=== PATIENT | female | born 1960 | race Caucasian/White ===

== ENCOUNTER 2017-10-24 09:25 | Emergency (ER) | payer OTHER ==
[2017-10-24 10:32] VITALS: BP 123/88
--- NOTE | 2017-10-24 11:16 | UC ---
Respiratory Complaint HPI - HPI Summary HPI Summary: 5 DAYS OF SINUS CONGESTION/PRESSURE, RHINITIS, AUGUST, FATIGUE, ST. DEVELOP COUGH 3 DAYS AGO AND LAST NIGHT TEMP WAS 101. VOMITED X 1 LAST NIGHT 1AM. TX FOR SINUSITIS 2 WEEKS AGO WITH BACTRIM. - History of Current Complaint Chief Complaint: UCRespiratory Stated Complaint: FLU SYMPTOMS Time Seen by Provider: 10/24/17 10:30 Hx Obtained From: Patient Hx Last Menstrual Period: 2006 Onset/Duration: Gradual Onset, Lasting Days, Still Present Timing: Constant Severity Initially: Moderate Severity Currently: Moderate Pain Intensity: 3 Pain Scale Used: 0-10 Numeric Character: Cough: Nonproductive Aggravating Factors: Nothing Alleviating Factors: Nothing Associated Signs And Symptoms: Positive: Fever, Chills, URI, Nasal Congestion, Sinus Discomfort. Negative: Dyspnea, Wheezing - Allergies/Home Medications Allergies/Adverse Reactions: Allergies Allergy/AdvReac Type Severity Reaction Status Date / Time Ibuprofen Allergy Severe Anaphylatic Verified 07/18/16 09:44 Shock RENEE Inhibitors Allergy Coughing Verified 10/24/17 10:32 Cefprozil Allergy Vomiting Verified 10/24/17 10:32 Home Medications: Home Medications Amlodipine Besylate [Norvasc 10 mg tab] 10 mg PO DAILY 10/24/17 [History Confirmed 10/24/17] Cetirizine* [ZyrTEC 10 MG TAB*] 10 mg PO DAILY PRN 10/24/17 [History Confirmed 10/24/17] Fluticasone NASAL SPRAY 50MCG* [Flonase NASAL SPRAY 50MCG*] 2 spray BOTH NARES DAILY 10/24/17 [History Confirmed 10/24/17] Ipratropium Assonet (Nasal) [Ipratropium Assonet] 0.06 % NA BID 10/24/17 [ History Confirmed 10/24/17] Irbesartan 300 mg PO DAILY 10/24/17 [History Confirmed 10/24/17] Ketotifen Fumarate (Ophth) [Zaditor] 0.025 % OP Q12H PRN 10/24/17 [History Confirmed 10/24/17] PMH/Surg Hx/FS Hx/Imm Hx Cardiovascular History: Hypertension - Surgical History Surgical History: Yes Surgery Procedure, Year, and Place: RIGHT KNEE LAPROSCOPIC. LEFT ULNER SX. TUBAL ligation - Family History Known Family History: Positive: Hypertension - Social History Alcohol Use: Occasionally Substance Use Type: None Smoking Status (MU): Heavy Every Day Tobacco Smoker Type: Cigarettes Amount Used/How Often: 1 PPD Length of Time of Smoking/Using Tobacco: 30 YRS Have You Smoked in the Last Year: Yes Review of Systems Constitutional: Fever, Fatigue ENT: Sore Throat, Nasal Discharge, Sinus Congestion Respiratory: Cough Cardiovascular: Negative Gastrointestinal: Vomiting, Nausea Neurological: Headache All Other Systems Reviewed And Are Negative: Yes Physical Exam Triage Information Reviewed: Yes Appearance: Well-Appearing, No Pain Distress, Well-Nourished Vital Signs: Initial Vital Signs Temp 98.9 F 10/24/17 10:22 Pulse 98 10/24/17 10:22 Resp 22 10/24/17 10:22 BP 123/88 10/24/17 10:22 Pulse Ox 96 10/24/17 10:22 Vital Signs Reviewed: Yes Eyes: Positive: Conjunctiva Clear ENT: Positive: Hearing grossly normal, Pharynx normal, Nasal congestion, TMs normal Neck: Positive: Supple, Nontender, No Lymphadenopathy Respiratory Exam: Normal Cardiovascular Exam: Normal Abdomen Description: Positive: Soft Musculoskeletal: Positive: No Edema Neurological: Positive: Alert Psychological: Positive: Age Appropriate Behavior Skin: Negative: rashes UC Diagnostic Evaluation - Laboratory O2 Sat by Pulse Oximetry: 96 Respiratory Course/Dx - Differential Dx/Diagnosis Provider Diagnoses: ACUTE RHINOSINUSITIS Discharge - Discharge Plan Condition: Stable Disposition: HOME Prescriptions: Amoxicillin/Clavulanate TAB* [Augmentin TAB 875*] 875 mg PO BID #20 tab Patient Education Materials: Rhinosinusitis (ED) Referrals: Twila Knight PA [Primary Care Provider] - If Needed Additional Instructions: ACUTE RHINOSINUSITIS It is generally not possible to distinguish viral from bacterial acute rhinosinusitis (ARS) in the first 10 days of illness. Acute bacterial rhinosinusitis (ABRS) should be suspected in patients presenting with any of the following three features: 1) persistent symptoms or signs of ARS lasting 10 or more days with no clinical improvement; 2) onset with severe symptoms (fever >39C or 102F and purulent nasal discharge or facial pain) lasting at least three consecutive days at the beginning of illness; 3) onset with worsening symptoms following a viral upper respiratory infection that lasted five to six days and was initially improving. Management of acute viral rhinosinusitis (AVRS) aims to relieve symptoms of nasal obstruction and rhinorrhea; treatment for ABRS includes antibiotics to eliminate the infection and prevent complications. AVRS is expected to resolve within 10 days; ABRS may also resolve spontaneously within the first 10 days. Patients who present with fewer than 10 days of symptoms, in the absence of high fever or symptoms suggesting complicated illness, should be managed with supportive care - mild analgesics, saline nasal irrigation, and fluid. Consider treatment with intranasal glucocorticoids. Decongestants may be useful when eustachian tube dysfunction is a factor for patients with AVRS, but are not likely to be helpful for patients with ABRS. CONSIDER ENT EVALUATION TO DETERMINE THE EXTENT OF ANY UNDERLYING SINUS DISEASE AND TO DISCUSS TREATMENT OPTIONS FOR RECURRENT SINUSITIS. [facility] [place] [facility] [phone] [facility] [place] ([facility] OFFICE HOURS ON TUESDAYS) DR. IRLANDA LEONARDO Address: [address] [place] [address] (Tuesdays) Phone [place]: Phone [place]: TRY OTC AFRIN FOR NASAL CONGESTION. OKAY TO USE 2-3 SPRAYS IN EACH NOSTRIL UP TO 2 TIMES DAILY. DO NOT USE FOR MORE THAN 3-4 CONSECUTIVE DAYS TO PREVENT DEVELOPING REBOUND CONGESTION.
== END 2017-10-24 11:16 | disposition home or self-care (01) ==
LOC: UCCORT 09:25
DX: J01.90 Acute sinusitis, unspecified (principal); R11.2 Nausea with vomiting, unspecified; R53.83 Other fatigue; I10 Essential (primary) hypertension; Z88.6 Allergy status to analgesic agent; Z88.1 Allergy status to other antibiotic agents; F17.210 Nicotine dependence, cigarettes, uncomplicated
CPT/HCPCS: 99212; G0463

== ENCOUNTER 2019-06-30 08:32 | Emergency (ER) | payer OTHER ==
[2019-06-30 08:51] VITALS: BP 144/105
--- NOTE | 2019-06-30 09:00 | UC ---
Skin Complaint HPI - HPI Summary HPI Summary: 58-year-old woman comes in with a chief complaint of a rash. Started 5 days ago. Rashes on her left forearm and the posterior thighs bilaterally. She was at a drawing where there was concern for bedbugs. Rash is itchy. She's tried topical corticosteroids and it has only helped minimally. Feels well otherwise. No fevers or chills. - History of Current Complaint Chief Complaint: UCSkin Time Seen by Provider: 06/30/19 08:43 Stated Complaint: SKIN Hx Last Menstrual Period: 2006 Pain Intensity: 0 - Allergy/Home Medications Allergies/Adverse Reactions: Allergies Allergy/AdvReac Type Severity Reaction Status Date / Time RENEE Inhibitors Allergy Coughing Verified 06/30/19 08:45 cefprozil Allergy Vomiting Verified 06/30/19 08:45 ibuprofen Allergy Anaphylatic Verified 06/30/19 08:45 Shock Home Medications: Home Medications Halobetasol Propionate [Ultravate] 50 gm TP ONCE 06/30/19 [History Confirmed 06/11] Hydrocortisone 0.5% OINT* 1 applic TOPICAL BID 06/30/19 [History Confirmed 06/30] diphenhydrAMINE HCl [Benadryl Allergy] 25 mg PO ONCE PRN 06/30/19 [History Confirmed 06/30/19] PMH/Surg Hx/FS Hx/Imm Hx Previously Healthy: Yes Cardiovascular History: Hypertension - Surgical History Surgical History: Yes Surgery Procedure, Year, and Place: RIGHT KNEE LAPROSCOPIC. LEFT ULNER SX. TUBAL ligation - Family History Known Family History: Positive: Hypertension - Social History Alcohol Use: Occasionally Substance Use Type: None Smoking Status (MU): Heavy Every Day Tobacco Smoker Type: Cigarettes Amount Used/How Often: 1 PPD Length of Time of Smoking/Using Tobacco: 30 YRS Have You Smoked in the Last Year: Yes Review of Systems All Other Systems Reviewed And Are Negative: Yes Constitutional: Positive: Negative Skin: Positive: Rash - SEE HPI Eyes: Positive: Negative ENT: Positive: Negative Respiratory: Positive: Negative Cardiovascular: Positive: Negative Gastrointestinal: Positive: Negative Motor: Positive: Negative Neurovascular: Positive: Negative Musculoskeletal: Positive: Negative Neurological: Positive: Negative Psychological: Positive: Negative Is Patient Immunocompromised?: No Physical Exam Triage Information Reviewed: Yes Appearance: Well-Appearing, No Pain Distress, Well-Nourished Vital Signs: Initial Vital Signs Temp 98.4 F 06/30/19 08:45 Pulse 76 06/30/19 08:45 Resp 16 06/30/19 08:45 BP 144/105 06/30/19 08:45 Pulse Ox 98 06/30/19 08:45 Vital Signs Reviewed: Yes Eye Exam: Normal Eyes: Positive: Conjunctiva Clear Neck: Positive: Supple Respiratory: Positive: No respiratory distress Musculoskeletal: Positive: Strength Intact, ROM Intact Neurological: Positive: Alert, Muscle Tone Normal Psychological: Positive: Age Appropriate Behavior Skin: Positive: Other - A slightly raised erythematous patches 2-4 cm in diameter which some are confluence on the posterior thighs bilaterally. There are also several patches on the left forearm. No drainage no streaking. Course/Dx - Course Course Of Treatment: The rash is most consistent with a contact dermatitis which may have been caused by insect bites. The treat with Medrol Dosepak. At this time it does not appear to be infected. We discussed the possibility of infection and that if there is any signs of infection patient is to start the antibiotic. Reevaluate sooner if worse or any questions or concerns. - Diagnoses Provider Diagnosis: Rash, Contact dermatitis Discharge - Sign-Out/Discharge Documenting (check all that apply): Patient Departure All imaging exams completed and their final reports reviewed: No Studies - Discharge Plan Condition: Stable Disposition: HOME Prescriptions: DOXYcycline CAP(*) [DOXYcycline 100MG CAP(*)] 100 mg PO BID #20 cap methylPREDNISolone [Medrol Dosepak 4 MG*] 0 mg PO .SEE SHEILA INSTRUCTION #1 sheila Patient Education Materials: Contact Dermatitis (ED), Acute Rash (ED) Referrals: Twila Knight PA [Primary Care Provider] - Additional Instructions: FOLLOW UP WITH YOUR DOCTOR IF NOT COMPLETELY IMPROVED. GET REEVALUATED SOONER IF WORSE OR ANY QUESTIONS OR CONCERNS. - Billing Disposition and Condition Condition: STABLE Disposition: Home
== END 2019-06-30 09:06 | disposition home or self-care (01) ==
LOC: UCCORT 08:32
DX: L25.9 Unspecified contact dermatitis, unspecified cause (principal); I10 Essential (primary) hypertension; F17.210 Nicotine dependence, cigarettes, uncomplicated
CPT/HCPCS: 99212; G0463